=== PATIENT | female | born 1960 | race Two or more races ===

== ENCOUNTER 2019-05-11 12:52 | Emergency (ER) | payer OTHER ==
[~2019-05-11] VITALS: Ht 144.8 cm; Wt 70.8 kg
[~2019-05-11 12:52] MED LIST: FLUT250M2 INH; LEVO100T8 PO
[2019-05-11] MEDS ORDERED: PANTOPRAZOLE 40 MG/10 ML VIAL INJ IV STA (13:40)
[2019-05-11] MEDS ORDERED: SODIUM CHLORIDE 0.9% 1,000 ML IVB ONE (13:40)
[2019-05-11] MEDS ORDERED: MORPHINE SULFATE 4 MG/ML SYR/VIAL IV ONE (13:45)
[2019-05-11] MEDS ORDERED: ONDANSETRON HCL 4 MG/2 ML VIAL IV ONE (13:45)
[2019-05-11 13:59] LABS: Urine WBC None Seen /hpf (0 - 5)
[2019-05-11 14:09] LABS: Basophils # (auto) 0 uL; Basophils % (auto) 0.3 % (0.0-2.0); Eosinophils # (auto) 0 uL; Eosinophils % (auto) 0.5 % (0.0-7.0); Hematocrit 40.2 % (36.0-46.0); Hemoglobin 13.5 g/dL (12.2-16.2); Lymphocytes # (auto) 1.4 uL; Lymphocytes % (auto) 26.3 % (10.0-50.0); Mean Corpuscular Hemoglobin 31.4 pg (28.0-32.0); Mean Corpuscular Hgb Conc. 33.5 g/dL (32.0-36.0); Mean Corpuscular Volume 93.7 fL (80.0-100.0); Monocytes # (auto) 0.4 uL; Monocytes % (auto) 6.9 % (0.0-12.0); Neutrophils # (auto) 3.4 uL; Nucleated Red Blood Cells % 0.1 %; Platelet Count (auto) 245 10^3/uL (140-450); Red Blood Cells 4.29 10^6/uL (4.0-5.20); Red Cell Distribution Width 13.4 % (11.8-14.3); White Blood Cell 5.2 10^3/uL (4.4-10.8)
[2019-05-11 14:15] LABS: Urine Bacteria NONE SEEN /hpf (None Seen); Urine Blood 1+ /uL (Negative); Urine Mucus FEW (None Seen); Urine Specific Gravity 1.029 (1.001-1.035)
[2019-05-11 14:24] LABS: Albumin 3.8 g/dL (3.4-5.0); Calcium 8.8 mg/dL (8.5-10.1); Potassium 3.6 mmol/L (3.5-5.1)
[2019-05-11 14:27] LABS: BUN/Creatinine Ratio 26.2; Bilirubin, Total 0.6 mg/dL (0.2-1.0); Total Protein 7.6 g/dL (6.4-8.2)
[2019-05-11 17:03] VITALS: BP 100/59
== END 2019-05-11 17:09 | disposition home or self-care (01) ==
LOC: ER 12:55
DX: K29.00 Acute gastritis without bleeding (principal); R11.2 Nausea with vomiting, unspecified
CPT/HCPCS: 36415; 76705; 80053; 81001; 82150; 83690; 85025; 96361; 96374; 96375; 99284; C9113; J2270; J2405; J7030

== ENCOUNTER 2019-09-24 13:09 | Inpatient (IN) | payer OTHER ==
[~2019-09-24] VITALS: Ht 144.8 cm; Wt 70.9 kg
[2019-09-24] MEDS ORDERED: AZITHROMYCIN 500MG/ 250ML 250 ML IV ONE (14:30)
[2019-09-24] MEDS ORDERED: DexAMETHasone SOD PHOS 4 MG/1ML SDV INJ IV ONE (14:30)
[2019-09-24] MEDS ORDERED: PANTOPRAZOLE 40 MG/10 ML VIAL INJ IV ONE (14:30)
[2019-09-24] MEDS ORDERED: ASCORBIC ACID 500 MG TAB PO ONE (14:45)
[2019-09-24] MEDS ORDERED: ZINC SULFATE 220mg CAP or TAB PO ONE (14:45)
[2019-09-24 15:21] LABS: Basophils # (auto) 0 10 ^3/uL (0-0.2); Basophils % (auto) 0.5 % (0.0-2.0); Eosinophils # (auto) 0 10 ^3/uL (0-0.8); Hematocrit 39.8 % (36.0-46.0); Hemoglobin 13.4 g/dL (12.2-16.2); Lymphocytes # (auto) 0.8 10 ^3/uL (0.4-5.4); Lymphocytes % (auto) 14.3 % (10.0-50.0); Mean Corpuscular Hemoglobin 30.7 pg (28.0-32.0); Mean Corpuscular Hgb Conc. 33.6 g/dL (32.0-36.0); Mean Corpuscular Volume 91.3 fL (80.0-100.0); Monocytes # (auto) 0.3 10 ^3/uL (0-1.3); Monocytes % (auto) 5.8 % (0.0-12.0); Neutrophils # (auto) 4.2 10 ^3/uL (1.6-8.6); Neutrophils % (auto) 79.4 % (37.0-80.0); Nucleated Red Blood Cells % 0.1 %; Platelet Count (auto) 278 10^3/uL (140-450); Red Blood Cells 4.36 10^6/uL (4.0-5.20); Red Cell Distribution Width 13.3 % (11.8-14.3); White Blood Cell 5.3 10^3/uL (4.4-10.8)
[2019-09-24] MEDS ORDERED: SODIUM CHLORIDE 0.9% 1,000 ML IV SCH (15:33)
[2019-09-24 15:35] LABS: Calcium 8.4 mg/dL (8.5-10.1); Potassium 3.6 mmol/L (3.5-5.1)
[2019-09-24 15:40] LABS: BUN/Creatinine Ratio 13.9; Bilirubin, Total 0.3 mg/dL (0.2-1.0); Total Protein 7.7 g/dL (6.4-8.2)
[2019-09-24] MEDS ORDERED: LORazepam 0.5 MG TAB PO PRN (15:45)
[2019-09-24] MEDS ORDERED: NITROGLYCERIN 0.4 MG SL TAB SL PRN (15:45)
[2019-09-24] MEDS ORDERED: DOCUSATE SOD 100 MG CAP PO PRN (15:45)
[2019-09-24] MEDS ORDERED: ALUM & MAG HYDROX-SIMETH LIQ(MAALOX) 30 ML PO PRN (15:45)
[2019-09-24] MEDS ORDERED: ONDANSETRON HCL 4 MG/2 ML VIAL IV PRN (15:45)
[2019-09-24] MEDS ORDERED: ACETAMINOPHEN 500 MG TAB PO PRN (15:45)
[2019-09-24] MEDS ORDERED: DexAMETHasone 4 MG TAB PO ONE (15:45)
[2019-09-24] MEDS ORDERED: MORPHINE SULF INJ 2 MG/ML SYRINGE 1ML IV PRN ×2 (15:45)
[2019-09-24] MEDS ORDERED: HYDROcodone-ACET 5/325MG TAB PO PRN (15:45)
[2019-09-24 16:02] LABS: CRP High Sensitivity 7.21 mg/dL (< 0.3)
[2019-09-24 16:19] LABS: Cholesterol 143 mg/dL (< 200); Triglycerides 185 mg/dL (< 150)
[2019-09-24 16:23] LABS: HDL Cholesterol 30 mg/dL (40-59); LDL Cholesterol 92 mg/dL (< 100)
--- NOTE | 2019-09-24 18:22 | NUR ---
REPORT RECEIVED Received report from ER nurse Gutierrez.
--- NOTE | 2019-09-24 19:25 | NUR ---
END OF SHIFT NOTE Endorsed care to NOC NATASHA guerrero. No s/s of distress noted.
--- NOTE | 2019-09-24 20:30 | NUR ---
Opening Shift Note Assumed care of patient, awake and alert malay speaking with limited danish. No S/S of distress/SOB or pain. Instructed on POC and to call for assist PRN patient verbalizes understanding no questions asked, will continue to monitor for changes Q1hr and PRN. call light within reach.
[2019-09-24] MEDS: DexAMETHasone 4 MG TAB PO SCH (20:44)
[2019-09-24] MEDS: DOXYCYCLINE 100 MG TAB/CAP PO SCH (20:44)
[2019-09-24 21:53] VITALS: BP 91/62
--- NOTE | 2019-09-24 21:53 | NUR ---
Respiratory note: PT RECIEVED ON NC4L. ASSESSED PT AND NO NEED FOR TX AT THIS TIME. PT STATES SHE IS NOT SOB AT THIS TIME. SPO2 94%, HR 84, RR 20. BS DIM WITH FAINT CRACKLES IN BASES. WILL CONTINUE TO MONITOR PT T/O SHIFT IF PT BECOMES SOB/WHEEZING.
[2019-09-24] MEDS ORDERED: ALPR0.25 PO (21:57)
[2019-09-24 22:00] VITALS: BP 91/62
[2019-09-24] MEDS ORDERED: ALBUTEROL SULF HFA 90MCG INH 200DOSE IN SCH (22:00)
--- NOTE | 2019-09-24 22:00 | NUR ---
FAMILY UPDATED PATIENT DAUGHTER DALE PAK CALLED FOR STATUS UPDATE. INFORMED DAUGHTER PATIENT COVID TEST STILL PENDING. POC UPDATED. PASSWORD MAX.
[2019-09-24] MEDS ORDERED: FUROSEMIDE 20 MG/2 ML VIAL IV ONE (22:30)
[2019-09-24] MEDS ORDERED: ENOXAPARIN SOD 100 MG/1 ML SYRINGE SC ONE (22:30)
--- NOTE | 2019-09-24 23:00 | NUR ---
PATIENT C/O PAIN TO IV ACCESS 20 TO RIGHT HAND. INSERTED 22G LFA PATENT AND INTACT.
[2019-09-25] VITALS (7 sets, daily range): BP systolic 90–107; BP diastolic 44–68
--- NOTE | 2019-09-25 00:50 | NUR ---
PATIENT INHOUSE COVID RESULTS NEGATIVE CHARGE NURSE NOTIFIED.
--- NOTE | 2019-09-25 01:49 | NUR ---
PATIENT IS COVID NEGATIVE PATIENT TRANSFERRED TO ROOM 205. ALL BELONGINGS WITH PATIENT.
--- NOTE | 2019-09-25 02:04 | NUR ---
GAVE REPORT TO NURSE ORTEGA TO RESUME CARE OF PATIENT.
[2019-09-25] MEDS: ALBUTEROL SULF 2.5 MG/0.5ML(0.5%) NEB SOLN NEB PRN ×3 (02:12→09:18)
--- NOTE | 2019-09-25 02:26 | NUR ---
RECEIVED PATIENT VIA WHEELCHAIR, AWAKE, ALERT AND ORIENTED X 4, ON 4L O2 VIA NC, VITAL SIGNS ARE: BP-92/57, HR-77, 93% ON 4L O2. PATIENT IS TACHYPNEIC, WITH UNPRODUCTIVE COUGH, WHEEZING AND WITH RHONCHI ON THE BASES, CALLED RT TO GIVE PRN NEBULIZERS. RESTARTED IVF NF AT 75ML/HR ON LEFT FORE ARM IV. ORIENTED TO UNIT ROUTINES, CALL [facility] WITHIN REACH, PHONE PROVIDED PER REQUEST, FALL PRECAUTIONS IN PLACE. BED ALARM ON.
[2019-09-25] MEDS: FUROSEMIDE 20 MG/2 ML VIAL IV SCH ×2 (06:08→17:45)
--- NOTE | 2019-09-25 07:45 | NUR ---
RECEIVED PATIENT ALERT AND ORIENTED X4, NOT IN DISTRESS, LUNG SOUNDS RT. AND LT. UPPER WHEEZING AND RHONCHI SOUNDS IN LOWER LUNG LOBES NOTED, RR=18, SAT 91%, DEEP BREATHING AND COUGHING ENCOURAGED, DEMONSTRATED AND VERBALIZED WELL, DENIED SOB AND CHEST PAIN AT THIS MOMENT, SR R=72 ON TELE MONITOR, ABDOMEN SOFT WITH ACTIVE BS, TOLERATED 100% OF PROVIDED BREAK FAST TRAY, LAST BM=09/24/19 REPORTED, SKIN INTACT WARM TO TOUCH, RADIAL AND PEDAL PULSES PALPABLE, CAP REFILL <3 SECONDS, RESTING ON BED, DENIED PAIN, HEAD OF BED ELEVATED, BED ON LOW POSITION, RAILS UP X2, CALL LIGHT ON REACH, PENDING VQ SCAN TODAY, WILL CONTINUE MONITORING.
--- NOTE | 2019-09-25 09:00 | NUR ---
ON O2 2L NC, C/O SOB SAT=82% DEEP BREATHING AND COUGHING ENCOURAGED, INCREASE O2 TO 4L NC, SAT=88%, RT WAS CALLED AND CAME, PUT ON OXYMIZER, SAT=90%, WILL CONTINUE MONITORING.
[2019-09-25 09:42] LABS: Hematocrit 39.4 % (36.0-46.0); Hemoglobin 13.4 g/dL (12.2-16.2); Mean Corpuscular Hgb Conc. 34.1 g/dL (32.0-36.0); Platelet Count (auto) 313 10^3/uL (140-450); Red Blood Cells 4.33 10^6/uL (4.0-5.20); Red Cell Distribution Width 13.5 % (11.8-14.3); White Blood Cell 2.3 10^3/uL (4.4-10.8)
[2019-09-25 09:50] LABS: Basophils % (manual) 0 (0.0-2.0); Blast Cells 0; Metamyelocytes % 0; Myelocytes % 0; Promyelocytes % 0; Reactive Lymphocytes 0
[2019-09-25 09:58] LABS: Calcium 8.4 mg/dL (8.5-10.1); Potassium 3.2 mmol/L (3.5-5.1)
[2019-09-25] MEDS ORDERED: ASCORBIC ACID 1,000 MG TAB PO SCH (10:00)
[2019-09-25] MEDS ORDERED: ENOXAPARIN SOD 40 MG/0.4 ML SYRINGE SC SCH (10:00)
[2019-09-25 10:03] LABS: INR 1.01 (0.9-1.15); Partial Thromboplastin Time 31.6 sec (23.64-32.05)
[2019-09-25 10:04] LABS: BUN/Creatinine Ratio 16.7; Bilirubin, Total 0.4 mg/dL (0.2-1.0); Magnesium 2.1 mg/dL (1.6-2.6); Phosphorus 2.7 mg/dL (2.5-4.90); Total Protein 7.9 g/dL (6.4-8.2)
[2019-09-25] MEDS: ZINC SULFATE 220mg CAP or TAB PO SCH (10:08)
[2019-09-25] MEDS: DexAMETHasone 4 MG TAB PO SCH (10:09)
[2019-09-25] MEDS: DOXYCYCLINE 100 MG TAB/CAP PO SCH ×2 (10:09→22:38)
[2019-09-25] MEDS: CHOLECALCIFEROL (VITD3) 1,000UNIT=25mCg TAB PO SCH (10:10)
[2019-09-25] MEDS: ASCORBIC ACID 500 MG TAB PO SCH (10:11)
[2019-09-25] MEDS: ENOXAPARIN SOD 100 MG/1 ML SYRINGE SC SCH ×2 (10:11→22:39)
--- NOTE | 2019-09-25 10:24 | NUR ---
NOT IN DISTRESS, DENIED PAIN, SITTING ON BED, POTASSIUM L=3.2, DR. CURT MESA WAS NOTIFIED, PENDING POTASSIUM PO ORDERED, WILL CONTINUE MONITORING.
[2019-09-25 10:29] LABS: Band Neutrophils % (manual) 2; Eosinophils % (manual) 2 (0-7); Lymphocytes % (manual) 6 (10.0-50.0); Monocytes % (manual) 13 (0-12)
[2019-09-25] MEDS ORDERED: POTASSIUM CHL 20 Meq TABLET PO ONE ×2 (10:30→12:15)
[2019-09-25] MEDS ORDERED: methylPREDNISolone SOD SUCC 40 MG/ML VL IV ONE (12:15)
--- NOTE | 2019-09-25 12:31 | NUR ---
ON DROPLET ISOLATION FOR R/O COVID 19 ORDERED, RT. NOSE SWAP SAMPLE SENT TO THE LAB, PENDING RESULT, NOT IN DISTRESS, DENIED PAIN, RESTING ON BED AT THIS MOMENT, WILL CONTINUE MONITORING.
--- NOTE | 2019-09-25 13:44 | NUR ---
PT REMAINS ON OXYMIZER 9L/MIN, 94% O2 SATS, HR 88 BPM, RR20 BPM, SKIN IS DRY AND WARM TO THE TOUCH. PT IS AWAKE,ALERT AND ORIENTED. NO SOB OR ANY OTHER ACUTE RESPIRATORY DISTRESS NOTICED. WILL CONTINUE TO MONITOR PT.
[2019-09-25] MEDS: ALBUTEROL SULF HFA 90MCG INH 200DOSE IN SCH ×2 (14:00→21:40)
--- NOTE | 2019-09-25 18:30 | NUR ---
POSITIVE COVID 19 RESULT REPORTED, TRANSFER ON TO [facility], REPORT WAS GIVEN TO THE RECEIVING RN, TOOK ALL BELONGINGS AND LEFT NOTHING BEHIND.
--- NOTE | 2019-09-25 19:30 | NUR ---
Opening Shift Note Assumed care of patient, awake and alert, no S/S of distress/SOB or pain. Call light within reach, bed in lowest position x2 side rails, HOB high fowlers. Instructed on POC and to call for assist PRN, will continue to monitor for changes Q1hr and PRN.
[2019-09-25] MEDS: POTASSIUM CHL 20 Meq TABLET PO SCH (22:38)
[2019-09-25] MEDS: methylPREDNISolone SOD SUCC 40 MG/ML VL IV SCH (22:38)
[2019-09-26 05:06] VITALS: BP 113/71
[2019-09-26] MEDS: FUROSEMIDE 20 MG/2 ML VIAL IV SCH (06:53)
[2019-09-26] MEDS: LEVOTHYROXINE SODIUM 100 MCG TAB PO SCH (06:54)
[2019-09-26] MEDS: ALBUTEROL SULF HFA 90MCG INH 200DOSE IN SCH ×3 (07:01→22:01)
[2019-09-26 08:00] VITALS: BP 113/71
[2019-09-26] MEDS: methylPREDNISolone SOD SUCC 40 MG/ML VL IV SCH ×2 (09:34→21:38)
[2019-09-26] MEDS: ZINC SULFATE 220mg CAP or TAB PO SCH (09:35)
[2019-09-26] MEDS: POTASSIUM CHL 20 Meq TABLET PO SCH (09:35)
[2019-09-26] MEDS: DOXYCYCLINE 100 MG TAB/CAP PO SCH ×2 (09:35→21:38)
[2019-09-26] MEDS: ASCORBIC ACID 500 MG TAB PO SCH (09:35)
[2019-09-26] MEDS: CHOLECALCIFEROL (VITD3) 1,000UNIT=25mCg TAB PO SCH (09:36)
[2019-09-26] MEDS: ENOXAPARIN SOD 100 MG/1 ML SYRINGE SC SCH ×2 (09:37→21:38)
[2019-09-26 10:19] LABS: Basophils # (auto) 0 10 ^3/uL (0-0.2); Basophils % (auto) 0.1 % (0.0-2.0); Eosinophils # (auto) 0 10 ^3/uL (0-0.8); Hematocrit 38.7 % (36.0-46.0); Lymphocytes # (auto) 0.8 10 ^3/uL (0.4-5.4); Mean Corpuscular Hemoglobin 30.6 pg (28.0-32.0); Mean Corpuscular Hgb Conc. 33.6 g/dL (32.0-36.0); Mean Corpuscular Volume 91.1 fL (80.0-100.0); Monocytes # (auto) 0.6 10 ^3/uL (0-1.3); Neutrophils # (auto) 7.8 10 ^3/uL (1.6-8.6); Neutrophils % (auto) 83.9 % (37.0-80.0); Nucleated Red Blood Cells % 0.1 %; Platelet Count (auto) 353 10^3/uL (140-450); Red Blood Cells 4.24 10^6/uL (4.0-5.20); Red Cell Distribution Width 13.2 % (11.8-14.3); White Blood Cell 9.3 10^3/uL (4.4-10.8)
[2019-09-26 10:35] LABS: BUN/Creatinine Ratio 23.9; Calcium 8.8 mg/dL (8.5-10.1); Potassium 3.8 mmol/L (3.5-5.1)
[2019-09-26 12:35] VITALS: BP 108/72
[2019-09-26 13:01] LABS: Urine Bacteria FEW /hpf (None Seen); Urine Blood Negative /uL (Negative); Urine Mucus FEW (None Seen); Urine Specific Gravity 1.017 (1.001-1.035); Urine WBC 1 /hpf (0 - 5)
[2019-09-26 13:28] LABS: Amphetamine Screen, Urine NEGATIVE (NEGATIVE); Barbiturate Scree,Urine NEGATIVE (NEGATIVE); Benzodiazephine Screen, Urine POSITIVE (NEGATIVE); Cannabinoid Screen, Urine POSITIVE (NEGATIVE); Cocaine Screen, Urine NEGATIVE (NEGATIVE); Phencyclidine Screen, Urine NEGATIVE (NEGATIVE)
[2019-09-26 13:37] LABS: Alcohol, Urine < 3.0 mg/dL (0-10); Opiate Scree,Urine NEGATIVE (NEGATIVE)
[2019-09-26 17:30] VITALS: BP 120/78
[2019-09-26 21:00] VITALS: BP 112/80
--- NOTE | 2019-09-26 21:20 | NUR ---
RT NOTE PT WAS SEEN BY RT FOR MDI TX. PT TOLERATES WELL VIA SPACER. PT IS ON BEDSIDE POX. CONT ORDERED Addendum: 09/26/19 at 2322 by Shira Nice RT Amended: Links added.
--- NOTE | 2019-09-26 23:00 | NUR ---
IV removal IV DC'd with clean sterile technique, catheter fully intact. Pressure dressing applied to site. Patient tolerated well.
--- NOTE | 2019-09-26 23:00 | NUR ---
Incentive Spirometer IS teaching for patient. Educated patient on technique to use IS and how it will prevent further complications and improve respirations. Patient verbalized understanding, and demonstrated for nursed; reinforcement needed. Will continue to monitor and educate.
[2019-09-27] VITALS (7 sets, daily range): BP systolic 100–120; BP diastolic 61–74
--- NOTE | 2019-09-27 | NUR ---
IV insertion IV access obtained, via clean sterile technique by inserting 22 gauge catheter at right forearm after three attempt(s). IV secured properly. No trauma to site. Patient tolerated well.
[2019-09-27] MEDS: ALBUTEROL SULF HFA 90MCG INH 200DOSE IN SCH ×3 (06:05→22:30)
[2019-09-27] MEDS: LEVOTHYROXINE SODIUM 100 MCG TAB PO SCH (06:50)
[2019-09-27] MEDS ORDERED: FUROSEMIDE 20 MG/2 ML VIAL IV SCH (07:00)
[2019-09-27 07:33] LABS: BUN/Creatinine Ratio 29.5; Calcium 8.9 mg/dL (8.5-10.1); Potassium 4.2 mmol/L (3.5-5.1)
[2019-09-27] MEDS: ZINC SULFATE 220mg CAP or TAB PO SCH (09:33)
[2019-09-27] MEDS: methylPREDNISolone SOD SUCC 40 MG/ML VL IV SCH ×2 (09:33→22:50)
[2019-09-27] MEDS: POTASSIUM CHL 20 Meq TABLET PO SCH (09:34)
[2019-09-27] MEDS: DOXYCYCLINE 100 MG TAB/CAP PO SCH ×2 (09:34→22:50)
[2019-09-27] MEDS: ASCORBIC ACID 500 MG TAB PO SCH (09:35)
[2019-09-27] MEDS: CHOLECALCIFEROL (VITD3) 1,000UNIT=25mCg TAB PO SCH (09:35)
[2019-09-27] MEDS: ENOXAPARIN SOD 100 MG/1 ML SYRINGE SC SCH ×2 (09:35→22:50)
[2019-09-27] MEDS ORDERED: guaiFENesin-DM 100/10mg/5ml SYR PO PRN (14:30)
[2019-09-27] MEDS ORDERED: ACETAMINOPHEN 500 MG TAB PO PRN (14:30)
[2019-09-28 05:00] VITALS: BP 108/65
[2019-09-28] MEDS: LEVOTHYROXINE SODIUM 100 MCG TAB PO SCH (06:54)
[2019-09-28] MEDS: ALBUTEROL SULF HFA 90MCG INH 200DOSE IN SCH ×3 (06:54→22:49)
[2019-09-28 08:00] VITALS: BP 107/70
[2019-09-28 09:00] VITALS: BP 108/70
[2019-09-28] MEDS: methylPREDNISolone SOD SUCC 40 MG/ML VL IV SCH ×2 (09:30→22:54)
[2019-09-28] MEDS: ZINC SULFATE 220mg CAP or TAB PO SCH (09:30)
[2019-09-28] MEDS: POTASSIUM CHL 20 Meq TABLET PO SCH (09:31)
[2019-09-28] MEDS: FUROSEMIDE 20 MG TAB PO SCH (09:31)
[2019-09-28] MEDS: DOXYCYCLINE 100 MG TAB/CAP PO SCH ×2 (09:32→22:55)
[2019-09-28] MEDS: ASCORBIC ACID 500 MG TAB PO SCH (09:32)
[2019-09-28] MEDS: CHOLECALCIFEROL (VITD3) 1,000UNIT=25mCg TAB PO SCH (09:34)
[2019-09-28] MEDS: ENOXAPARIN SOD 100 MG/1 ML SYRINGE SC SCH ×2 (09:34→22:55)
[2019-09-28 09:51] LABS: Basophils # (auto) 0 10 ^3/uL (0-0.2); Basophils % (auto) 0.1 % (0.0-2.0); Eosinophils # (auto) 0 10 ^3/uL (0-0.8); Hematocrit 39.7 % (36.0-46.0); Hemoglobin 13.3 g/dL (12.2-16.2); Lymphocytes # (auto) 1.4 10 ^3/uL (0.4-5.4); Mean Corpuscular Hemoglobin 30.8 pg (28.0-32.0); Mean Corpuscular Hgb Conc. 33.6 g/dL (32.0-36.0); Mean Corpuscular Volume 91.8 fL (80.0-100.0); Monocytes # (auto) 0.6 10 ^3/uL (0-1.3); Monocytes % (auto) 8.4 % (0.0-12.0); Neutrophils # (auto) 4.8 10 ^3/uL (1.6-8.6); Neutrophils % (auto) 70.5 % (37.0-80.0); Platelet Count (auto) 447 10^3/uL (140-450); Red Blood Cells 4.33 10^6/uL (4.0-5.20); Red Cell Distribution Width 13.3 % (11.8-14.3); White Blood Cell 6.8 10^3/uL (4.4-10.8)
[2019-09-28 10:05] LABS: Potassium 3.9 mmol/L (3.5-5.1)
[2019-09-28 10:13] LABS: Albumin 3.1 g/dL (3.4-5.0); BUN/Creatinine Ratio 28.9; Bilirubin, Total 0.4 mg/dL (0.2-1.0); Calcium 9.1 mg/dL (8.5-10.1); Total Protein 7.7 g/dL (6.4-8.2)
[2019-09-28 13:00] VITALS: BP 88/56
--- NOTE | 2019-09-28 15:46 | NUR ---
Est energy needs [phone] kcal (20-25 kcal/kg BW 76.1kg) Est protein needs 42-50g (1-1.2g/kg IBW 42kg) Will reassess prn. Addendum: 09/28/19 at [address] Amended: Links added.
[2019-09-28 16:44] VITALS: BP 97/61
--- NOTE | 2019-09-28 19:45 | NUR ---
Opening Shift Note Assumed care of patient, awake and alert. No S/S of distress/SOB or pain. Patient safety measures in place bed in lowest position, side rails upx2, and call light within reach. Instructed on POC and to call for assist PRN, will continue to monitor for changes Q1hr and PRN.
[2019-09-28 22:00] VITALS: BP 100/63
[2019-09-29 05:00] VITALS: BP 100/61
[2019-09-29] MEDS: ALBUTEROL SULF HFA 90MCG INH 200DOSE IN SCH ×3 (06:17→22:13)
[2019-09-29] MEDS: LEVOTHYROXINE SODIUM 100 MCG TAB PO SCH (06:17)
--- NOTE | 2019-09-29 06:17 | NUR ---
I ADMINISTERED BY NATASHA Evans
[2019-09-29 08:18] VITALS: BP 94/96
[2019-09-29 08:40] VITALS: BP 95/59
[2019-09-29] MEDS: methylPREDNISolone SOD SUCC 40 MG/ML VL IV SCH ×2 (09:31→22:24)
[2019-09-29] MEDS: ENOXAPARIN SOD 100 MG/1 ML SYRINGE SC SCH ×2 (09:32→22:24)
[2019-09-29] MEDS: ZINC SULFATE 220mg CAP or TAB PO SCH (09:32)
[2019-09-29] MEDS: POTASSIUM CHL 20 Meq TABLET PO SCH (09:32)
[2019-09-29] MEDS: DOXYCYCLINE 100 MG TAB/CAP PO SCH ×2 (09:33→21:59)
[2019-09-29] MEDS: FUROSEMIDE 20 MG TAB PO SCH (09:33)
[2019-09-29] MEDS: ASCORBIC ACID 500 MG TAB PO SCH (09:34)
[2019-09-29] MEDS: CHOLECALCIFEROL (VITD3) 1,000UNIT=25mCg TAB PO SCH (09:34)
[2019-09-29 12:51] VITALS: BP 117/69
[2019-09-29 16:20] VITALS: BP 110/72
--- NOTE | 2019-09-29 19:35 | NUR ---
Opening Shift Note Assumed care of patient, awake and alert. No S/S of distress/SOB or pain. Patient is on 1 L/min kristian Oxymizer. Patient's bed in lowest position, side rails up x2, and call light within reach. Instructed on POC and to call for assist PRN, will continue to monitor for changes Q1hr and PRN.
[2019-09-29 22:19] VITALS: BP 103/61
[2019-09-30 05:40] VITALS: BP 102/61
[2019-09-30] MEDS: ALBUTEROL SULF HFA 90MCG INH 200DOSE IN SCH ×2 (06:40→14:25)
[2019-09-30] MEDS: LEVOTHYROXINE SODIUM 100 MCG TAB PO SCH (06:45)
[2019-09-30 08:00] VITALS: BP 95/67
[2019-09-30 09:00] VITALS: BP 99/65
[2019-09-30] MEDS: FUROSEMIDE 20 MG TAB PO SCH (10:00)
[2019-09-30] MEDS: ENOXAPARIN SOD 100 MG/1 ML SYRINGE SC SCH (10:31)
[2019-09-30] MEDS: POTASSIUM CHL 20 Meq TABLET PO SCH (10:32)
[2019-09-30] MEDS: ZINC SULFATE 220mg CAP or TAB PO SCH (10:32)
[2019-09-30] MEDS: methylPREDNISolone SOD SUCC 40 MG/ML VL IV SCH (10:32)
[2019-09-30] MEDS: ASCORBIC ACID 500 MG TAB PO SCH (10:33)
[2019-09-30] MEDS: CHOLECALCIFEROL (VITD3) 1,000UNIT=25mCg TAB PO SCH (10:33)
[2019-09-30 12:53] VITALS: BP 99/66
[2019-09-30] MEDS ORDERED: FUR20T PO (14:30)
[2019-09-30] MEDS ORDERED: ALBUAER3 IN (14:30)
[2019-09-30] MEDS ORDERED: PANT40TA2 PO (14:30)
[2019-09-30] MEDS ORDERED: POTA-220 PO (14:30)
[2019-09-30] MEDS ORDERED: CHOL1000 PO (14:30)
[2019-09-30] MEDS ORDERED: ASCO500T11 PO (14:30)
[2019-09-30] MEDS ORDERED: METH4PAK PO (14:30)
[2019-09-30 17:08] VITALS: BP 91/55
--- NOTE | 2019-09-30 18:47 | NUR ---
PAATIENT DISCHARGED HOME WITH FAMILY. TELEMETRY BOX REMOVED AND RETURNED TO TELEMETRY DEPARTMENT. ALL IV ACCESS DISCONTINUED. ALL DISCHARGE INSTRUCTIONS GIVEN. ALL DISCHARGE PAPERWORK SIGNED. PATIENT DISCHARGED WITH EVS AND TRAIN INSPECTOR
[2019-10-01] MEDS ORDERED: ENOXAPARIN SOD 40 MG/0.4 ML SYRINGE SC SCH (10:00)
--- NOTE | 2019-10-01 10:55 | NUR ---
BUSINESS AND SERVICES INSTRUCTOR WEEKEND Did not received a page or call regarding social service consult for home oxygen.
== END 2019-09-30 18:50 | disposition home or self-care (01) | DRG 177 ==
LOC: ER 13:09 → TELE 13:10 → TELE-EAST 19:25 → TELE-CENTR 09-25 01:51 → TELE-EAST 09-25 18:10
PROVIDERS: ADMIT Hospitalist; ATTEND Internal Medicine
DX: U07.1 COVID-19 (principal); J96.01 Acute respiratory failure with hypoxia; J12.89 Other viral pneumonia; J44.1 Chronic obstructive pulmonary disease with (acute) exacerbation; J45.901 Unspecified asthma with (acute) exacerbation; E87.1 Hypo-osmolality and hyponatremia; E44.0 Moderate protein-calorie malnutrition; J44.0 Chronic obstructive pulmonary disease with (acute) lower respiratory infection; R65.10 Systemic inflammatory response syndrome (SIRS) of non-infectious origin without acute organ dysfunction; E66.9 Obesity, unspecified; E03.9 Hypothyroidism, unspecified; E78.5 Hyperlipidemia, unspecified; R79.82 Elevated C-reactive protein (CRP); F41.9 Anxiety disorder, unspecified; Z80.9 Family history of malignant neoplasm, unspecified; Z83.3 Family history of diabetes mellitus; Z82.49 Family history of ischemic heart disease and other diseases of the circulatory system; Z68.34 Body mass index [BMI] 34.0-34.9, adult
CPT/HCPCS: 36415; 36600; 71045; 80048; 80053; 80061; 80307; 81001; 82728; 82805; 83036; 83605; 83615; 83735; 84100; 84443; 84484; 85007; 85025; 85027; 85379; 85610; 85730; 86141; 87040; 87086; 87635; 93005; 94640; 96365; 96366; 96375; C9113; G0378; J1100

== ENCOUNTER 2020-10-27 14:55 | Emergency (ER) | payer OTHER ==
[~2020-10-27] VITALS: Ht 144.8 cm; Wt 71.2 kg
[~2020-10-27 14:55] MED LIST changes: +ALBUAER3 IN; +ALPR0.25 PO; +ASCO500T11 PO; +CHOL1TAB30 PO; +FUR20T PO; +METH4PAK PO; +PANT40TA2 PO; +POTA-220 PO
[2020-10-27 16:16] VITALS: BP 108/73
== END 2020-10-27 17:13 | disposition home or self-care (01) ==
LOC: ER 14:59
DX: F41.9 Anxiety disorder, unspecified (principal); J45.909 Unspecified asthma, uncomplicated; Z79.899 Other long term (current) drug therapy
CPT/HCPCS: 71045

== ENCOUNTER 2021-08-01 14:29 | Emergency (ER) | payer OTHER ==
[~2021-08-01] VITALS: Ht 142.2 cm; Wt 70.8 kg
[2021-08-01] MEDS ORDERED: IPRATROPIUM BROM 0.5 MG/2.5ML INH SOL NEB ONE (15:15)
[2021-08-01] MEDS ORDERED: cefTRIAXone SOD 1,000 MG VL IM ONE (15:15)
[2021-08-01] MEDS ORDERED: methylPREDNISolone SOD SUCC 125 MG/2 ML VL IM ONE (15:15)
[2021-08-01] MEDS ORDERED: ALBUTEROL SULF 2.5 MG/0.5ML(0.5%) NEB SOLN NEB ONE (15:15)
[2021-08-01 15:49] VITALS: BP 147/46
== END 2021-08-01 16:34 | disposition home or self-care (01) ==
LOC: ER 14:29
DX: J45.901 Unspecified asthma with (acute) exacerbation (principal); J20.9 Acute bronchitis, unspecified; J03.90 Acute tonsillitis, unspecified
CPT/HCPCS: 94640; 96372; 99284; J0696; J2930; J7644

== ENCOUNTER 2021-08-03 11:55 | Inpatient (IN) | payer OTHER ==
[~2021-08-03] VITALS: Ht 162.6 cm; Wt 71.4 kg
[2021-08-03] MEDS ORDERED: MAGNESIUM SULFATE 1GM/100ML 100 ML IV ONE (13:00)
[2021-08-03] MEDS ORDERED: methylPREDNISolone SOD SUCC 125 MG/2 ML VL IV ONE (13:00)
[2021-08-03] MEDS ORDERED: ALBUTEROL SULF 2.5 MG/0.5ML(0.5%) NEB SOLN NEB ONE (13:00)
[2021-08-03] MEDS ORDERED: IPRATROPIUM BROM 0.5 MG/2.5ML INH SOL NEB ONE (13:00)
[2021-08-03 13:19] LABS: Basophils # (auto) 0.2 10 ^3/uL (0-0.2); Basophils % (auto) 2.5 % (0.0-2.0); Eosinophils # (auto) 0 10 ^3/uL (0-0.8); Hematocrit 37.7 % (36.0-46.0); Hemoglobin 12.9 g/dL (12.2-16.2); Lymphocytes # (auto) 1.9 10 ^3/uL (0.4-5.4); Lymphocytes % (auto) 20.6 % (10.0-50.0); Mean Corpuscular Hemoglobin 30.8 pg (28.0-32.0); Mean Corpuscular Hgb Conc. 34.3 g/dL (32.0-36.0); Mean Corpuscular Volume 89.7 fL (80.0-100.0); Monocytes # (auto) 0.4 10 ^3/uL (0-1.3); Monocytes % (auto) 4.8 % (0.0-12.0); Neutrophils # (auto) 6.5 10 ^3/uL (1.6-8.6); Neutrophils % (auto) 72.1 % (37.0-80.0); Nucleated Red Blood Cells % 0.1 %; Red Cell Distribution Width 13.2 % (11.8-14.3)
[2021-08-03 13:50] LABS: Albumin 3.8 g/dL (3.4-5.0); Potassium 3.8 mmol/L (3.5-5.1)
[2021-08-03 13:54] LABS: BUN/Creatinine Ratio 23.3; Bilirubin, Total 0.3 mg/dL (0.2-1.0); Total Protein 7.8 g/dL (6.4-8.2)
[2021-08-03] MEDS ORDERED: NITROGLYCERIN 0.4 MG SL TAB SL PRN (15:45)
[2021-08-03] MEDS ORDERED: MORPHINE SULFATE INJECTION 2 MG/ML SYRG IV PRN ×2 (15:45→18:45)
[2021-08-03] MEDS ORDERED: ALPRAZolam 0.25 MG TAB PO PRN (18:30)
[2021-08-03] MEDS ORDERED: LABETALOL HCL 5 MG/ML 4ML SYRINGE IV PRN ×2 (18:45→19:15)
[2021-08-03] MEDS ORDERED: ONDANSETRON HCL 4 MG/2 ML VIAL IV PRN (18:45)
[2021-08-03] MEDS ORDERED: HYDROcodone-ACET 5/325MG TAB PO PRN (18:45)
[2021-08-03] MEDS ORDERED: DOCUSATE SOD 100 MG CAP PO PRN (18:45)
[2021-08-03] MEDS ORDERED: hydrALAZINE HCL 20 MG/ML VL IV PRN (18:45)
[2021-08-03 19:04] VITALS: BP 105/64
[2021-08-03 19:51] LABS: Magnesium 2.4 mg/dL (1.6-2.6); Phosphorus 2.6 mg/dL (2.5-4.90)
[2021-08-03 20:00] VITALS: BP 123/52
[2021-08-03 20:49] LABS: INR 0.95 (0.9-1.15); Partial Thromboplastin Time 21.7 sec (23.6-33.0)
[2021-08-03] MEDS: MONTELUKAST SODIUM 10 MG TAB PO SCH (21:46)
[2021-08-03] MEDS: methylPREDNISolone SOD SUCC 40 MG/ML VL IV SCH (21:46)
[2021-08-03] MEDS: guaiFENesin-DM 100/10mg/5ml SYR PO PRN (21:47)
[2021-08-03] MEDS ORDERED: IPRATROPIUM BROM 0.5 MG/2.5ML INH SOL NEB SCH (22:00)
[2021-08-03 22:07] VITALS: BP 142/86
[2021-08-04] VITALS (8 sets, daily range): BP systolic 103–135; BP diastolic 45–72
[2021-08-04] MEDS: ALBUTEROL SULF 2.5 MG/0.5ML(0.5%) NEB SOLN NEB PRN (00:18)
[2021-08-04] MEDS: IPRATROPIUM BROM 0.5 MG/2.5ML INH SOL NEB SCH ×6 (00:18→22:37)
[2021-08-04] MEDS: BUDESONIDE (INHALATION) 0.5 MG/2 ML NEB NEB SCH ×3 (00:18→18:39)
[2021-08-04 02:11] LABS: Urine Bacteria None Seen /hpf (None Seen)
[2021-08-04 02:37] LABS: Alcohol, Urine < 3.0 mg/dL (0-10); Amphetamine Screen, Urine NEGATIVE (NEGATIVE); Barbiturate Scree,Urine NEGATIVE (NEGATIVE); Benzodiazephine Screen, Urine NEGATIVE (NEGATIVE); Cannabinoid Screen, Urine NEGATIVE (NEGATIVE); Cocaine Screen, Urine NEGATIVE (NEGATIVE); Opiate Scree,Urine NEGATIVE (NEGATIVE); Phencyclidine Screen, Urine NEGATIVE (NEGATIVE); Protein, Urine 17.7 mg/dL (0.0-11.9)
[2021-08-04 03:05] LABS: Urine Blood Normal /uL (Negative); Urine Specific Gravity 1.026 (1.001-1.035)
[2021-08-04 03:42] LABS: Urine WBC 0-1 /hpf (0 - 5); Urine WBC Clumps NONE SEEN /hpf (None Seen)
[2021-08-04 05:57] LABS: Basophils # (auto) 0 10 ^3/uL (0-0.2); Basophils % (auto) 0.1 % (0.0-2.0); Eosinophils # (auto) 0 10 ^3/uL (0-0.8); Hemoglobin 12.3 g/dL (12.2-16.2); Lymphocytes # (auto) 1.4 10 ^3/uL (0.4-5.4); Lymphocytes % (auto) 20.6 % (10.0-50.0); Mean Corpuscular Hemoglobin 31.7 pg (28.0-32.0); Mean Corpuscular Hgb Conc. 35.2 g/dL (32.0-36.0); Mean Corpuscular Volume 89.9 fL (80.0-100.0); Monocytes # (auto) 0.3 10 ^3/uL (0-1.3); Monocytes % (auto) 4.7 % (0.0-12.0); Neutrophils # (auto) 5.1 10 ^3/uL (1.6-8.6); Neutrophils % (auto) 74.6 % (37.0-80.0); Red Cell Distribution Width 13.1 % (11.8-14.3); White Blood Cell 6.8 10^3/uL (4.4-10.8)
[2021-08-04 06:11] LABS: Albumin 3.4 g/dL (3.4-5.0); Calcium 8.7 mg/dL (8.5-10.1); Magnesium 2.3 mg/dL (1.6-2.6); Potassium 4.3 mmol/L (3.5-5.1)
[2021-08-04 06:15] LABS: INR 0.94 (0.9-1.15); Partial Thromboplastin Time 20.2 sec (23.6-33.0)
[2021-08-04 06:17] LABS: BUN/Creatinine Ratio 21.4; Bilirubin, Total 0.3 mg/dL (0.2-1.0); CRP High Sensitivity 0.2 mg/dL (< 0.3); Phosphorus 1.8 mg/dL (2.5-4.90); Total Protein 7.3 g/dL (6.4-8.2); Uric Acid 5.1 mg/dL (2.6-6.0)
[2021-08-04] MEDS: LEVOTHYROXINE SODIUM 100 MCG TAB PO SCH (06:32)
[2021-08-04] MEDS: guaiFENesin-DM 100/10mg/5ml SYR PO PRN ×2 (06:36→20:57)
[2021-08-04] MEDS: ENOXAPARIN SOD 40 MG/0.4 ML SYRINGE SC SCH (08:57)
[2021-08-04] MEDS: AZITHROMYCIN 500MG/ 250ML 250 ML IV SCH (08:57)
[2021-08-04] MEDS: methylPREDNISolone SOD SUCC 40 MG/ML VL IV SCH ×2 (08:57→23:42)
[2021-08-04] MEDS ORDERED: ENOXAPARIN SOD 40 MG/0.4 ML SYRINGE SC SCH (10:00)
[2021-08-04] MEDS ORDERED: FAMOTIDINE (10MG/ML) 2ML VL IV SCH (10:00)
[2021-08-04] MEDS: MONTELUKAST SODIUM 10 MG TAB PO SCH (23:42)
[2021-08-05 05:00] VITALS: BP 122/70
[2021-08-05] MEDS: IPRATROPIUM BROM 0.5 MG/2.5ML INH SOL NEB SCH ×2 (05:56→10:20)
[2021-08-05] MEDS: BUDESONIDE (INHALATION) 0.5 MG/2 ML NEB NEB SCH (05:56)
[2021-08-05] MEDS: ALBUTEROL SULF 2.5 MG/0.5ML(0.5%) NEB SOLN NEB PRN ×2 (05:56→10:20)
[2021-08-05] MEDS: LEVOTHYROXINE SODIUM 100 MCG TAB PO SCH (06:50)
[2021-08-05 09:00] VITALS: BP 107/62
[2021-08-05] MEDS: ENOXAPARIN SOD 40 MG/0.4 ML SYRINGE SC SCH (09:21)
[2021-08-05] MEDS: methylPREDNISolone SOD SUCC 40 MG/ML VL IV SCH (09:21)
[2021-08-05] MEDS: AZITHROMYCIN 500MG/ 250ML 250 ML IV SCH (09:21)
[2021-08-05] MEDS ORDERED: PRED20TA2 PO ×2 (09:30)
[2021-08-05] MEDS ORDERED: AZIT500T66 PO ×2 (09:30)
[2021-08-05] MEDS: guaiFENesin-DM 100/10mg/5ml SYR PO PRN (09:31)
[2021-08-05 12:51] VITALS: BP 107/62
[2021-08-05 13:00] VITALS: BP 103/54
== END 2021-08-05 16:00 | disposition home or self-care (01) | DRG 189 ==
LOC: ER 11:55 → EDBD 11:55 → TELE 15:35 → TELE-CENTR 18:22
PROVIDERS: ADMIT Hospitalist; ATTEND Family Medicine
DX: J96.00 Acute respiratory failure, unspecified whether with hypoxia or hypercapnia (principal); J44.0 Chronic obstructive pulmonary disease with (acute) lower respiratory infection; J45.901 Unspecified asthma with (acute) exacerbation; E03.9 Hypothyroidism, unspecified; E66.9 Obesity, unspecified; F12.90 Cannabis use, unspecified, uncomplicated; I10 Essential (primary) hypertension; I16.0 Hypertensive urgency; J20.9 Acute bronchitis, unspecified; K76.0 Fatty (change of) liver, not elsewhere classified; F41.9 Anxiety disorder, unspecified; Z79.51 Long term (current) use of inhaled steroids; Z68.27 Body mass index [BMI] 27.0-27.9, adult; Z83.3 Family history of diabetes mellitus; Z86.16 Personal history of COVID-19; Z87.01 Personal history of pneumonia (recurrent); Z79.899 Other long term (current) drug therapy; Z90.49 Acquired absence of other specified parts of digestive tract
CPT/HCPCS: 36415; 36600; 71045; 80053; 80061; 80307; 81001; 82550; 82728; 82805; 83036; 83615; 83690; 83735; 83880; 84100; 84156; 84443; 84484; 84550; 85025; 85379; 85610; 85652; 85730; 86141; 87040; 87070; 87086; 87205; 93970; 94640; 96365; 96375; G0378; J3490